=== PATIENT | male | born 1990 | race Caucasian/White ===

== ENCOUNTER 2016-07-25 18:40 | Emergency (ER) | payer SELFPAY ==
[2016-07-25] MEDS ORDERED: 0.9 % SODIUM CHLORIDE 1,000 ML IV ONE (19:10)
[2016-07-25] MEDS ORDERED: ONDANSETRON HCL/PF 4 MG/ 2ML VIAL IVP ONE (19:10)
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
[2016-07-25] MEDS ORDERED: KETOROLAC TROMETHAMINE 30 MG/1ML VIAL IVP ONE (19:26)
[2016-07-25 20:11] VITALS: BP 127/65
== END 2016-07-25 20:00 | disposition home or self-care (01) ==
LOC: ED 18:40
DX: J11.1 Influenza due to unidentified influenza virus with other respiratory manifestations (principal)
CPT/HCPCS: 87400; 96361; 96374; 99283; 99284; J1885; J2405; J7030; S1016